=== PATIENT | male | born 2000 | race Caucasian/White ===

== ENCOUNTER 2020-10-07 13:52 | Observation (INO) ==
[2020-10-07 16:16] LABS: Basophils # (auto) 0.02 K/uL (0-0.2); Basophils % (auto) 0.1 %; Eosinophils # (auto) 0.02 K/uL (0-0.5); Eosinophils % (auto) 0.1 %; Hematocrit (blood only) 43.9 % (42-52); Hemoglobin 15.5 g/dL (14.0-18.0); Immature Granulocytes # (auto) 0.05 K/uL (0.00-0.02); Immature Granulocytes % (auto) 0.2 %; Lymphocytes # (auto) 0.72 K/uL (1.2-3.4); Lymphocytes % (auto) 3.5 %; Mean Corpuscular Hgb Conc 35.3 g/dL (32-36); Mean Corpuscular Volume 87.8 fL (80-100); Mean Platelet Volume 10.4 fL (7.4-10.4); Monocytes # (auto) 1.56 K/uL (0.11-0.59); Monocytes % (auto) 7.7 %; Neutrophils % (auto) 88.4 %; Platelet Count 242 K/uL (130-400); RDW Standard Deviation 38.6 fL (36.4-46.3); White Blood Count 20.37 K/uL (4.8-10.8)
[2020-10-07] MEDS ORDERED: KETOROLAC TROMETHAMINE 15 MG/ML VIAL IV ONE (16:20)
[2020-10-07] MEDS ORDERED: SODIUM CHLORIDE 0.9% 1000ML 1,000 ML IV ONE (16:20)
[2020-10-07] MEDS ORDERED: ONDANSETRON INJ 2 MG/ML 2 ML VIAL IV STA (16:20)
--- NOTE | 2020-10-07 16:27 | Emergency Department Note ---
Impression & Plan Acute appendicitis, Abdominal pain, Leukocytosis ED Provider Note NAME: STANFORD CAIN AGE: 20 SEX: M : 2000 ARRIVES VIA: Walk-In INFORMANT: Patient ED PROVIDER(S): Fantasma Langford DO CHIEF COMPLAINT: Abdominal pain HPI: Patient is a 20-year-old male who presents ER for right lower quadrant abdominal pain which started this morning. Associate with nausea vomiting. Initially periumbilical now is focal in the right lower quadrant. Denies any dysuria urgency or frequency. Movement as well as palpation makes it worse. Pain is a 7 out of 10 intensity and sharp and stabbing in nature. Denies any chest pain or shortness of breath. ROS: See above HPI for pertinent positives & negatives. A total of 10 systems reviewed and were otherwise negative. PAST MEDICAL HISTORY:See Below PAST SURGICAL HISTORY:See Below FAMILY HISTORY:See Below SOCIAL HISTORY:See Below HOME MEDICATIONS:See Below ALLERGIES:See Below VITALS:See Below PHYSICAL EXAMINATION: GENERAL: Sitting up in bed, alert, well appearing, well nourished, no distress, non-toxic EYE EXAM: normal conjunctiva. OROPHARYNX: no exudate, no erythema, lips, buccal mucosa, and tongue normal and mucous membranes are moist NECK: supple, no nuchal rigidity, no adenopathy, non-tender LUNGS: Clear to auscultation. Normal chest wall mechanics HEART: no murmurs, S1 normal and S2 normal ABDOMEN: abdomen soft, tender palpation right lower quadrant, normo-active bowel sounds, no masses, no rebound or guarding. UPPER EXTREMITIES: upper extremities are grossly normal. LOWER EXTREMITIES: No pitting edema. NEURO EXAM: Normal sensorium, cranial nerves II-XII grossly intact, normal speech, no gross weakness of arms, no gross weakness of legs. MEDICAL DECISION MAKING: Patient is a 20-year-old male who presents the ER for right lower quadrant abdominal pain. On exam he is acutely tender. IV was demonstrated pristine. Labs show leukocytosis 20,000. No significant anemia. BMP along with LFTs bilirubin lipase is unremarkable. UA was negative. Covid was negative. CT abdomen pelvis confirms acute appendicitis. He was given fluids Toradol and cefoxitin and discussed with general surgery for further evaluation and admission. Triage Nursing notes reviewed. Limited review of prior medical records performed Vital Signs: reviewed and remarkable for no significant abnormalities Differential diagnosis: Differential diagnoses includes but is not limited to gastritis, peptic ulcer disease, GERD, gallbladder disease, pancreatitis, small bowel obstruction, acute coronary syndrome, pericarditis, ischemic bowel, irritable bowel disease, irritable bowel syndrome, appendicitis, diverticulitis, malignancy, hernia, urinary tract infection, torsion, /ectopic (if female), perforation, trauma, infectious. ER treatment provided: See below Diagnostics interpreted by me: ECG: none Cardiac Monitoring: An order was placed for continuous cardiac monitoring. The monitor shows a rate of 70 with sinus rhythm. Laboratory studies: As stated above and show below. Imaging studies: CT abdomen pelvis confirms acute appendicitis Consultation(s): none Procedures: none Critical Care: None Past Med/Surg History Medical History (Updated 10/07/20 @ 19:56 by Fantasma Langford DO) No significant medical problems Surgical History (Updated 10/07/20 @ 19:40 by Ernesto King MD) No significant past surgical history Social History Smoking Status: Never smoker Feels Safe at Home: Yes Allergies Allergies Allergy/AdvReac Type Severity Reaction Status Date / Time prednisone AdvReac Severe Agitated Verified 10/07/20 16:22 Home Meds Home Medications Medication Instructions Recorded Confirmed No Known Home Medications 10/07/20 10/07/20 Results & Data (ED) Vital Signs Vital Signs - 24 hr 10/07/20 14:10 10/07/20 16:23 10/07/20 16:30 Temperature 36.9 C 36.9 C Temperature Source Temporal Artery Scan Oral Pulse Rate 68 59 L Pulse Rate [Left] 58 L Pulse Rate from SpO2 Sensor 60 Pulse Rhythm [Left] Regular Respiratory Rate 20 18 20 Respiratory Effort / Characteristics Non-Labored Respiratory Depth Normal Blood Pressure 122/64 131/54 L Blood Pressure Mean 83 79 Pulse Oximetry 100 100 100 Oxygen Delivery Method Room Air Room Air Sepsis Recent Fever Within 48 Hours No Sepsis New/Unexplained Change in Mental Status No Sepsis Action Taken by Nursing No Action Required 10/07/20 16:33 10/07/20 16:45 10/07/20 17:00 Temperature Temperature Source Pulse Rate 64 54 L 61 Pulse Rate [Left] Pulse Rate from SpO2 Sensor 65 54 L 61 Pulse Rhythm [Left] Respiratory Rate 24 24 19 Respiratory Effort / Characteristics Respiratory Depth Blood Pressure 116/58 L 134/70 Blood Pressure Mean 77 91 Pulse Oximetry 99 100 100 Oxygen Delivery Method Sepsis Recent Fever Within 48 Hours Sepsis New/Unexplained Change in Mental Status Sepsis Action Taken by Nursing 10/07/20 17:30 10/07/20 17:46 10/07/20 18:00 Temperature Temperature Source Pulse Rate 71 69 61 Pulse Rate [Left] Pulse Rate from SpO2 Sensor 71 68 62 Pulse Rhythm [Left] Respiratory Rate 23 17 20 Respiratory Effort / Characteristics Respiratory Depth Blood Pressure 107/78 148/61 H 143/66 H Blood Pressure Mean 87 90 91 Pulse Oximetry 100 100 100 Oxygen Delivery Method Sepsis Recent Fever Within 48 Hours Sepsis New/Unexplained Change in Mental Status Sepsis Action Taken by Nursing 10/07/20 18:01 10/07/20 18:10 10/07/20 18:15 Temperature Temperature Source Pulse Rate 64 74 71 Pulse Rate [Left] Pulse Rate from SpO2 Sensor 63 73 68 Pulse Rhythm [Left] Respiratory Rate 25 H 28 H 17 Respiratory Effort / Characteristics Respiratory Depth Blood Pressure 157/62 H Blood Pressure Mean 93 Pulse Oximetry 100 100 100 Oxygen Delivery Method Sepsis Recent Fever Within 48 Hours Sepsis New/Unexplained Change in Mental Status Sepsis Action Taken by Nursing 10/07/20 18:20 10/07/20 18:30 10/07/20 18:40 Temperature Temperature Source Pulse Rate 68 69 72 Pulse Rate [Left] Pulse Rate from SpO2 Sensor 68 69 74 Pulse Rhythm [Left] Respiratory Rate 20 29 H 21 Respiratory Effort / Characteristics Respiratory Depth Blood Pressure 143/64 H Blood Pressure Mean 90 Pulse Oximetry 100 100 100 Oxygen Delivery Method Sepsis Recent Fever Within 48 Hours Sepsis New/Unexplained Change in Mental Status Sepsis Action Taken by Nursing 10/07/20 18:45 10/07/20 18:50 10/07/20 19:00 Temperature Temperature Source Pulse Rate 76 71 67 Pulse Rate [Left] Pulse Rate from SpO2 Sensor 76 71 67 Pulse Rhythm [Left] Respiratory Rate 22 20 17 Respiratory Effort / Characteristics Respiratory Depth Blood Pressure 137/76 120/77 Blood Pressure Mean 96 91 Pulse Oximetry 99 100 100 Oxygen Delivery Method Sepsis Recent Fever Within 48 Hours Sepsis New/Unexplained Change in Mental Status Sepsis Action Taken by Nursing 10/07/20 19:10 10/07/20 19:15 10/07/20 19:20 Temperature Temperature Source Pulse Rate 72 88 72 Pulse Rate [Left] Pulse Rate from SpO2 Sensor 71 86 Pulse Rhythm [Left] Respiratory Rate 21 22 21 Respiratory Effort / Characteristics Respiratory Depth Blood Pressure 127/71 Blood Pressure Mean 89 Pulse Oximetry 99 100 Oxygen Delivery Method Sepsis Recent Fever Within 48 Hours Sepsis New/Unexplained Change in Mental Status Sepsis Action Taken by Nursing Laboratory Data Result diagrams: 10/07/20 16:00 10/07/20 16:00 Lab Results 10/07/20 10/07/20 10/07/20 Range/Units 16:00 16:00 18:05 WBC 20.37 H (4.8-10.8) K/uL RBC 5.00 (4.7-6.1) M/uL Hgb 15.5 (14.0-18.0) g/dL Hct 43.9 (42-52) % MCV 87.8 (80-100) fL MCH 31.0 (25-34) pg MCHC 35.3 (32-36) g/dL RDW Std Deviation 38.6 (36.4-46.3) fL RDW Coeff of Dino 12.0 (11.5-14.5) % Plt Count 242 (130-400) K/uL MPV 10.4 (7.4-10.4) fL Immature Gran % (Auto) 0.2 % Neut % (Auto) 88.4 % Lymph % (Auto) 3.5 % [place] % (Auto) 7.7 % Eos % (Auto) 0.1 % Baso % (Auto) 0.1 % Neut # (Auto) 18.00 H (1.4-6.5) K/uL Lymph # (Auto) 0.72 L (1.2-3.4) K/uL [place] # (Auto) 1.56 H (0.11-0.59) K/uL Eos # (Auto) 0.02 (0-0.5) K/uL Baso # (Auto) 0.02 (0-0.2) K/uL Immature Gran # (Auto) 0.05 H (0.00-0.02) K/uL Sodium 138 (136-145) mmol/L Potassium 3.5 (3.5-5.1) mmol/L Chloride 105 (98-107) mmol/L Carbon Dioxide 26 (21-32) mmol/L Anion Gap 7.0 (3-11) BUN 16 (7-18) mg/dl Creatinine 0.89 (0.6-1.4) mg/dl Est Cr Clr Drug Dosing 126.0 ml/min Est GFR ( Amer) 142.7 Est GFR (Non-Af Amer) 123.1 BUN/Creatinine Ratio 17.4 (10-20) Glucose 104 H (70-99) mg/dl Calcium 9.8 (8.5-10.1) mg/dl Total Bilirubin 0.6 (0.2-1) mg/dl AST 14 L (15-37) U/L ALT 22 (12-78) U/L Alkaline Phosphatase 92 (45-117) U/L Total Protein 8.2 (6.4-8.2) gm/dl Albumin 4.8 (3.4-5.0) gm/dl Globulin 3.4 (2.5-4.0) gm/dl Albumin/Globulin Ratio 1.4 (0.9-2) Lipase 81 (73-393) U/L Urine Color Urine Appearance (Clear) Urine pH (4.5-7.5) Ur Specific [place] (1.000-1.030) Urine Protein (Negative) Urine Glucose (UA) (Negative) Urine Ketones (Negative) Urine Blood (Negative) Urine Nitrite (Negative) Urine Bilirubin (Negative) Urine Urobilinogen (Negative) Ur Leukocyte Esterase (Negative) COVID-19 Eval Order CovFluRsv at [facility] SARS-CoV-2 (PCR) (Negative) Influenza Type A (PCR) (Neg) Influenza Type B (PCR) (Neg) RSV (RT-PCR) (Neg) 10/07/20 10/07/20 Range/Units 18:05 Unknown WBC (4.8-10.8) K/uL RBC (4.7-6.1) M/uL Hgb (14.0-18.0) g/dL Hct (42-52) % MCV (80-100) fL MCH (25-34) pg MCHC (32-36) g/dL RDW Std Deviation (36.4-46.3) fL RDW Coeff of Dino (11.5-14.5) % Plt Count (130-400) K/uL MPV (7.4-10.4) fL Immature Gran % (Auto) % Neut % (Auto) % Lymph % (Auto) % [place] % (Auto) % Eos % (Auto) % Baso % (Auto) % Neut # (Auto) (1.4-6.5) K/uL Lymph # (Auto) (1.2-3.4) K/uL [place] # (Auto) (0.11-0.59) K/uL Eos # (Auto) (0-0.5) K/uL Baso # (Auto) (0-0.2) K/uL Immature Gran # (Auto) (0.00-0.02) K/uL Sodium (136-145) mmol/L Potassium (3.5-5.1) mmol/L Chloride (98-107) mmol/L Carbon Dioxide (21-32) mmol/L Anion Gap (3-11) BUN (7-18) mg/dl Creatinine (0.6-1.4) mg/dl Est Cr Clr Drug Dosing ml/min Est GFR ( Amer) Est GFR (Non-Af Amer) BUN/Creatinine Ratio (10-20) Glucose (70-99) mg/dl Calcium (8.5-10.1) mg/dl Total Bilirubin (0.2-1) mg/dl AST (15-37) U/L ALT (12-78) U/L Alkaline Phosphatase (45-117) U/L Total Protein (6.4-8.2) gm/dl Albumin (3.4-5.0) gm/dl Globulin (2.5-4.0) gm/dl Albumin/Globulin Ratio (0.9-2) Lipase (73-393) U/L Urine Color Dark Yellow Urine Appearance Clear (Clear) Urine pH 7.5 (4.5-7.5) Ur Specific [place] 1.029 (1.000-1.030) Urine Protein Negative (Negative) Urine Glucose (UA) Negative (Negative) Urine Ketones 2+ H (Negative) Urine Blood Negative (Negative) Urine Nitrite Negative (Negative) Urine Bilirubin Negative (Negative) Urine Urobilinogen Negative (Negative) Ur Leukocyte Esterase Negative (Negative) COVID-19 Eval Order SARS-CoV-2 (PCR) NEGATIVE (Negative) Influenza Type A (PCR) Negative (Neg) Influenza Type B (PCR) Negative (Neg) RSV (RT-PCR) Negative (Neg) Administered Medications Discontinued Medications Sodium Chloride (Nss 1000ml) 1,000 mls @ 999 mls/hr IV .Q1H1M ONE Stop: 10/07/20 17:20 Last Infusion: 10/07/20 17:56 Dose: 0 mls/hr Documented by: [id number] Admin: 10/07/20 16:40 Dose: 999 mls/hr Documented by: [id number] Cefoxitin Sodium (Mefoxin) 2,000 mg in 60 mls @ 100 mls/hr IV NOW STA Stop: 10/07/20 18:38 Last Infusion: 10/07/20 19:07 Dose: 0 mls/hr Documented by: [id number] Admin: 10/07/20 18:31 Dose: 100 mls/hr Documented by: [id number] Ketorolac Tromethamine (Ketorolac Tromethamine 15 Mg/Ml Vial) 15 mg IV NOW ONE Stop: 10/07/20 16:21 Last Admin: 10/07/20 16:39 Dose: 15 mg Documented by: [id number] Ondansetron HCl (Ondansetron Inj 2 Mg/Ml 2 Ml Vial) 4 mg IV NOW STA Stop: 10/07/20 16:21 Last Admin: 10/07/20 16:39 Dose: 4 mg Documented by: [id number] Imaging Data Radiologist's Impression: Abdomen/Pelvis CT 10/07/20 16:20 CT SCAN OF THE ABDOMEN AND PELVIS WITH IV CONTRAST CLINICAL HISTORY: Right lower quadrant abdominal pain. COMPARISON STUDY: No priors. TECHNIQUE: Following the IV administration of 86 cc of Optiray 320, CT scan of the abdomen and pelvis is performed from the lung bases to the proximal femora. Images are reviewed in the axial, sagittal, and coronal planes. IV contrast was administered without complication. A dose lowering technique was utilized adhering to the principles of ALARA. CT DOSE: 397.91 mGycm FINDINGS: Lung bases: The heart is normal in size and without pericardial effusion. The lung bases are clear. Liver: The contrast-enhanced liver is normal in size, contour, and attenuation. There is no intrahepatic biliary ductal dilatation. The hepatic veins and portal veins are patent. Gallbladder: Unremarkable. Spleen: Normal in size and attenuation. Pancreas: Unremarkable. Adrenal glands: Unremarkable. Kidneys: The contrast enhanced kidneys are normal in size and without hydronephrosis. The kidneys enhance indication excrete symmetrically. Abdominal vasculature: The abdominal aorta is normal in course and caliber. Bowel: No bowel obstruction is identified. Residual enteric contrast is noted in the rectum. The appendix is distended and fluid-filled, measuring up to 12 mm diameter. This is best seen on image #280. The appendiceal wall is thickened and hyperemic and there is periappendiceal inflammation. No organized fluid collection is identified to suggest abscess. Peritoneum: There is no intraperitoneal free air or abdominal ascites. There is a small fat-containing umbilical hernia. Lymphadenopathy: None. Pelvic viscera: The bladder is decompressed and grossly unremarkable. The prost ate and seminal vesicles are normal as visualized. Skeletal structures: No lytic or blastic lesions are seen. IMPRESSION: 1. Findings are consistent with acute appendicitis. 2. There is no evidence of abscess or perforation. ACT 112: Negative or not required by law. Electronically signed by: Thom Santana M.D. 10/07/2020 5:59 PM Discharge Plan Visit Data Chief Complaint: Abdominal Pain Stated Complaint: PAIN NEAR APPENDIX-FEVER, VOMITING ED Provider: Fantasma Langford Discharge Problem: Acute appendicitis, Abdominal pain, Leukocytosis Discharge Instructions Interventions: ED Discharge Assessment Last Done: 10/07/20 19:20 Discharge Problem: Acute appendicitis Qualifiers: Acute appendicitis type: unspecified acute appendicitis type Qualified Code(s): K35.80 - Unspecified acute appendicitis Abdominal pain Qualifiers: Abdominal location: unspecified location Qualified Code(s): R10.9 - Unspecified abdominal pain Leukocytosis Qualifiers: Leukocytosis type: unspecified Qualified Code(s): D72.829 - Elevated white blood cell count, unspecified
[2020-10-07 16:45] LABS: Albumin Level 4.8 gm/dl (3.4-5.0); BUN Creatinine Ratio 17.4 (10-20); Calcium 9.8 mg/dl (8.5-10.1); Est GFR (African American) 142.7; Est GFR (Non-African American) 123.1; Potassium 3.5 mmol/L (3.5-5.1)
[2020-10-07 16:48] LABS: Albumin Globulin Ratio 1.4 (0.9-2); Bilirubin,Total 0.6 mg/dl (0.2-1); Globulin 3.4 gm/dl (2.5-4.0); Total Protein 8.2 gm/dl (6.4-8.2)
[2020-10-07 16:50] LABS: Appearance Urine Clear (Clear); Bilirubin Urine Negative (Negative); Blood Urine Negative (Negative); Color Urine Dark Yellow; Glucose Urine UA Negative (Negative); Ketones Urine 2+ (Negative); Leukocyte Esterase Urine Negative (Negative); Nitrite Urine Negative (Negative); Protein Urine Negative (Negative); Specific Gravity Urine 1.029 (1.000-1.030); Urobilinogen Urine Negative (Negative); pH Urine 7.5 (4.5-7.5)
[2020-10-07] MEDS ORDERED: OPTIRAY 320 100ml IV ONE (17:17)
--- NOTE | 2020-10-07 18:01 | CT Scan Report ---
CT SCAN OF THE ABDOMEN AND PELVIS WITH IV CONTRAST CLINICAL HISTORY: Right lower quadrant abdominal pain. COMPARISON STUDY: No priors. TECHNIQUE: Following the IV administration of 86 cc of Optiray 320, CT scan of the abdomen and pelvi s is performed from the lung bases to the proximal femora. Images are reviewed in the axial, sagittal , and coronal planes. IV contrast was administered without complication. A dose lowering technique wa s utilized adhering to the principles of ALARA. CT DOSE: 397.91 mGycm FINDINGS: Lung bases: The heart is normal in size and without pericardial effusion. The lung bases are clear. Liver: The contrast-enhanced liver is normal in size, contour, and attenuation. There is no intrahepa tic biliary ductal dilatation. The hepatic veins and portal veins are patent. Gallbladder: Unremarkable. Spleen: Normal in size and attenuation. Pancreas: Unremarkable. Adrenal glands: Unremarkable. Kidneys: The contrast enhanced kidneys are normal in size and without hydronephrosis. The kidneys enh ance indication excrete symmetrically. Abdominal vasculature: The abdominal aorta is normal in course and caliber. Bowel: No bowel obstruction is identified. Residual enteric contrast is noted in the rectum. The appe ndix is distended and fluid-filled, measuring up to 12 mm diameter. This is best seen on image #280. The appendiceal wall is thickened and hyperemic and there is periappendiceal inflammation. No organi zed fluid collection is identified to suggest abscess. Peritoneum: There is no intraperitoneal free air or abdominal ascites. There is a small fat-containin g umbilical hernia. Lymphadenopathy: None. Pelvic viscera: The bladder is decompressed and grossly unremarkable. The prostate and seminal vesicl es are normal as visualized. Skeletal structures: No lytic or blastic lesions are seen. IMPRESSION: 1. Findings are consistent with acute appendicitis. 2. There is no evidence of abscess or perforation. ACT 112: Negative or not required by law. Electronically signed by: Thom Santana M.D. 10/07/2020 5:59 PM
[2020-10-07] MEDS ORDERED: cefOXitin 2,000 MG/60 ML BAG IV STA (18:03)
[2020-10-07 19:11] LABS: Influenza A virus by PCR Negative (Neg); Influenza B virus by PCR Negative (Neg); RSV by PCR Negative (Neg); SARS CoV2 RNA(COVID-19) InHosp NEGATIVE (Negative)
--- NOTE | 2020-10-07 19:25 | History & Physical Report ---
Date of Service October 07, 2020 Assessment & Plan (1) Acute appendicitis: Due to the imaging, labs, and clinical presentation we will proceed with the appendectomy this evening. A Covid test is noted be negative Cefoxitin has been ordered by the emergency department physician. as above. discussed findings/options/risks ( bleeding/infection/injury to another structure/dvt/pe/mi/cva etc....). questions answered. will proceed with gold engle. History of Present Illness Chief Complaint: Abdominal pain Primary Care Provider: [facility] This is a 20-year-old [employer] student who presented to the emergency department this evening. Patient noted that he woke up this morning and had some generalized abdominal pain primarily located in the periumbilical area. He said he ate breakfast but subsequently had nausea vomiting. He denies any fevers, shakes, chills. He notes the pain is subsequently throughout the day has shifted to the right lower quadrant. He said the pain does not radiate anywhere. He notes the pain is somewhat better when he lies still and is worse with certain movements. He also notes that pain administered in the emergency department has subsequently alleviated the pain. In the emergency department the patient had labs and imaging which I did telemetry reviewed. He had a CT scan of the abdomen and pelvis that showed findings consistent with acute appendicitis. CBC revealed a white blood cell count of 20.3. His hemoglobin hematocrit and platelet count were all noted to be within normal range. He did have a Covid test sent in the emergency department which was noted to be negative. A chemistry profile revealed his sodium, potassium, BUN, and creatinine were all within normal range. At the time of interview he is resting comfortably in bed in no distress. Allergies Allergy/AdvReac Type Severity Reaction Status Date / Time prednisone AdvReac Severe Agitated Verified 10/07/20 16:22 Home Medications Medication Instructions Recorded Confirmed Type No Known Home Medications 10/07/20 10/07/20 History Past Med/Surg History Social History Smoking Status: Never smoker Feels Safe at Home: Yes Review of Systems Constitutional: no fever and no chills Eyes: no diplopia Ear, Nose, Mouth, Throat: no ear pain Respiratory: no cough and no dyspnea Cardiovascular: no chest pain Gastrointestinal: + abdominal pain, + nausea and + vomiting Genitourinary: no dysuria Musculoskeletal: no back pain Integumentary: no rash Neurologic: no localized weakness Physical Exam Constitutional: well developed and well nourished; no acute distress Eyes: no conjunctival abnormality ENMT: Ears: no hearing impairment Neck: trachea midline Respiratory: normal respiratory effort, lungs clear to auscultation Cardiovascular: Rate/Rhythm: regular rate and regular rhythm Gastrointestinal (Abdomen): Abdomen is soft and nondistended. Bowel sounds are present. Patient did have significant pain with palpation in the right lower quadrant. He did have some associated rebound tenderness. Musculoskeletal: No calf tenderness Skin: no rashes, warm and dry Neurologic: moves all extremities Psychiatric: A+Ox3, euthymic affect Results & Data Results & Data ([facility]) Vital Signs (Past 12 Hours) Vital Signs Temp Pulse Pulse Resp BP Pulse Ox 10/07/20 18:01 64 25 H 100 10/07/20 18:00 61 20 143/66 H 100 10/07/20 17:46 69 17 148/61 H 100 10/07/20 17:30 71 23 107/78 100 10/07/20 17:00 61 19 134/70 100 10/07/20 16:45 54 L 24 116/58 L 100 10/07/20 16:33 64 24 99 10/07/20 16:30 59 L 20 131/54 L 100 10/07/20 16:23 36.9 C 58 L 18 100 10/07/20 14:10 36.9 C 68 20 122/64 100 PG Care Time/CCT Total # of Minutes Spent Total Time Spent with Patient: Total time spent is greater than 50% in coordination of care (as documented) at patient's floor/unit and/or counseling patient: Coding Level of Care Code 22749 OBS Care - Level 3 Diagnoses Acute appendicitis K35.80
[2020-10-07] MEDS ORDERED: MIDAZOLAM HCL 1 MG/ML 2ML VIAL ONE (19:35)
[2020-10-07] MEDS ORDERED: fentaNYL citrate 100 MCG/2 ML VIAL ONE ×2 (19:35→20:35)
[2020-10-07] MEDS ORDERED: MEPERIDINE HCL 25 MG/ML CARP/VIAL IV PRN (19:40)
[2020-10-07] MEDS ORDERED: KETOROLAC 30 MG/ML VIAL IV PRN (19:40)
[2020-10-07] MEDS ORDERED: fentaNYL citrate 100 MCG/2 ML VIAL IV PRN (19:40)
[2020-10-07] MEDS ORDERED: ONDANSETRON INJ 2 MG/ML 2 ML VIAL IV PRN ×2 (19:40→21:37)
[2020-10-07] MEDS ORDERED: ATROPINE SULFATE 0.1 MG/ML 10ML SYR IV PRN (19:40)
--- NOTE | 2020-10-07 19:40 | Anesthesiology Consultation ---
Date of Service October 07, 2020 Assessment & Plan (1) Encounter for pre-operative examination: Chart Review Chart Review: Acceptable Risk for Surgery History Surgery Operation Date: 10/07/20 20:00 Proposed Procedures p Laparoscopic Appendectomy(Not Applicable) - Xiang Wesley DO Height/Weight Height: 5 ft 10 in Weight: 67.3 kg Allergies Allergy/AdvReac Type Severity Reaction Status Date / Time prednisone AdvReac Severe Agitated Verified 10/07/20 16:22 Medications Home Medications Medication Instructions Recorded Confirmed Last Taken No Known Home Medications 10/07/20 10/07/20 Unknown Past Medical History Medical History (Updated 10/07/20 @ 19:40 by Ernesto King MD) No significant medical problems Past Surgical History Surgical History (Updated 10/07/20 @ 19:40 by Ernesto King MD) No significant past surgical history Social History Smoking Status: Never smoker Physical Exam Vital Signs Last Vital Signs Temp 36.9 C 10/07/20 16:23 Pulse 64 10/07/20 18:01 Resp 25 H 10/07/20 18:01 BP 143/66 H 10/07/20 18:00 Pulse Ox 100 10/07/20 18:01 Testing Laboratory Results 10/07/20 16:00 10/07/20 16:00 Urine Color Dark Yellow 10/07/20 Unknown Urine Appearance Clear (Clear) 10/07/20 Unknown Urine pH 7.5 (4.5-7.5) 10/07/20 Unknown Ur Specific [place] 1.029 (1.000-1.030) 10/07/20 Unknown Urine Protein Negative (Negative) 10/07/20 Unknown Urine Glucose (UA) Negative (Negative) 10/07/20 Unknown Urine Ketones 2+ (Negative) H 10/07/20 Unknown Urine Nitrite Negative (Negative) 10/07/20 Unknown Ur Leukocyte Esterase Negative (Negative) 10/07/20 Unknown
[2020-10-07] MEDS ORDERED: BUPIVACAINE/EPINEPHRINE 0.5% MPF 1:200,000 30 ML VIAL ONE (19:43)
[2020-10-07] MEDS ORDERED: PROPOFOL IV EMULSION 10 MG/ML 20 ML VIAL IV ONE (20:42)
[2020-10-07] MEDS ORDERED: NEOSTIGMINE METHYLSULFATE 5 MG/5 ML SYR ONE (20:42)
[2020-10-07] MEDS ORDERED: METOCLOPRAMIDE HCL INJ 5 MG/ML 2 ML VIAL ONE (20:42)
[2020-10-07] MEDS ORDERED: ROCURONIUM BROMID 50MG/5ML SYR ONE (20:42)
[2020-10-07] MEDS ORDERED: LIDOCAINE HCL 2% 2 ML VIAL/AMP(20MG/ML) INFIL ONE (20:42)
[2020-10-07] MEDS ORDERED: ONDANSETRON INJ 2 MG/ML 2 ML VIAL ONE (20:42)
[2020-10-07] MEDS ORDERED: GLYCOPYRROLATE 0.2 MG/ML VIAL ONE (20:42)
--- NOTE | 2020-10-07 21:08 | Operative Report ---
PG Post Operative Report Pre & Post Diagnosis Operation Date: 10/07/20 20:00 Pre-Op Diagnosis: Acute appendicitis Post-Op Diagnosis: Acute appendicitis I identified the patient and participated in the time-out.: Yes Procedure Operation Date: 10/07/20 20:00 Actual Procedures p Laparoscopic Appendectomy(Not Applicable) ; enterolysis- Xiang Wesley DO Surgeon Xiang Wesley DO Rn Clinical Quality julianna Curtis Estimated Blood Loss 10 Findings Consistent with Post-Op Diagnosis Specimens appendix Description of Procedure After informed consent was obtained the patient was taken to the operating room and placed in supine position. After successful intubation the abdomen was shaved and sterilely prepped draped in usual fashion. Left arm had been tucked. We began with a supraumbilical incision with 11 blade scalpel. This was carried down through the soft tissues using cautery. The anterior rectus fascia was opened using cautery and two #0 Vicryl stay sutures were placed. Peritoneum was elevated with hemostats and incised under direct vision using a Metzenbaum scissor. A finger sweep was performed. A 12 mm Mota trocar was placed and the abdomen was insufflated to 18 mmHg. The laparoscope was inserted and the abdomen examined in 360 degrees. A suprapubic 5 mm port and a left lower quadrant 12 mm port were placed under direct vision. The patient was placed in a Trendelenburg position and slightly air planed to the left. We looked in the right lower quadrant. We were able to readily identify a retrocecal appendix. It was thickened firm and inflamed. It had not perforated. There were some adhesions from the cecum to the right anterior abdominal wall. I used traction countertraction and sharp scissor lysis to take these down. Eventually I was able to roll the cecum medially exposing the appendix. I was able to grasp the appendix and bluntly dissect it away surrounding tissue. I was able to use a purple cartridge 60 mm HERMAN linear stapler to transect the appendix at its base with the cecum. A second firing with a 60 mm brown cartridge was used to take down the mesentery of the appendix. We then thoroughly irrigated the right lower quadrant as well as the pelvis. No other gross abnormalities were identified. I ran the small bowel backwards from the terminal ileum for several feet there was no evidence of a Meckel's diverticulum. We inspected both staple lines. There was adequate hemostasis. The appendix was placed into an Endo Catch bag and removed from the camera port site. All the trochars were removed and the abdomen was desufflated. The fascia of the camera port as well as the left lower quadrant port were closed using 0 Vicryl in [id number] fashion. All the wounds were irrigated and closed using 4-0 Monocryl. Marcaine was injected around them for postoperative analgesia and skin glue used as a dressing. My physician apartment community assistant manager was present through the entire case. He helped prep the patient. He helped run the camera as well as assist with retraction throughout my dissection. Also helped with wound closure and dressing placement. I attest to the content of the Intraoperative Record and any orders documented therein. Any exceptions are noted below.
[2020-10-07] MEDS ORDERED: MoRPHine SULFATE 4 MG/ML 1 ML CARP\\VIAL IV PRN (21:37)
[2020-10-07] MEDS ORDERED: LACTATED RINGER'S 1,000 ML IV SCH (21:37)
[2020-10-07] MEDS ORDERED: oxyCODONE HCL IR 5 MG TAB (IMMEDIATE RELEASE) PO PRN (21:49)
[2020-10-07] MEDS: ACETAMINOPHEN 1,000 MG/100 ML VIAL IV SCH (22:32)
[2020-10-08] MEDS: ACETAMINOPHEN 1,000 MG/100 ML VIAL IV SCH ×3 (05:30→14:09)
--- NOTE | 2020-10-08 10:01 | Surgery Progress Note ---
Date of Service October 08, 2020 Assessment & Plan (1) Acute appendicitis: pt still having a fair amount of surgical discomfort. oral pain meds administered now. will see how he does. possible d/c after lunch vs one more night of observation. d/c instructions reviewed with pt. Admission and Anticipated Discharge Date Admission Date: October 07, 2020 Subjective pt doing ok. having incisional pain but pre-op pain has resolved. zoie liquids. Physical Exam Physical Exam: alert. nad abd: soft. expected post op ttp. wounds look good. Results & Data ([facility]) Vital Signs (Past 12 Hours) Vital Signs Temp Pulse Resp BP Pulse Ox 10/08/20 07:30 36.6 C 53 L 16 116/66 98 10/08/20 04:00 37.0 C 86 15 103/57 L 97 10/08/20 00:37 36.8 C 89 15 118/61 98 10/07/20 23:30 95 H 15 125/61 97 10/07/20 22:27 37.1 C 80 16 133/56 L 98 10/07/20 22:03 37.0 C 91 H 14 140/61 96 PG Care Time/CCT Total # of Minutes Spent Total Time Spent with Patient: Total time spent is greater than 50% in coordination of care (as documented) at patient's floor/unit and/or counseling patient: Coding Level of Care Code None Diagnoses Acute appendicitis K35.80 Acute appendicitis type: unspecified acute appendicitis type (1) Acute appendicitis Acute appendicitis type: unspecified acute appendicitis type Qualified Code(s): K35.80 - Unspecified acute appendicitis
--- NOTE | 2020-10-11 16:12 | Discharge Summary (DS) ---
ADMISSION DIAGNOSIS: Acute appendicitis. DISCHARGE DIAGNOSIS: Acute appendicitis. HOSPITAL COURSE: This patient presented to the Emergency Department secondary to generalized abdominal pain and periumbilical area then it shifted to the right lower quadrant. The patient had nausea, vomiting, so he presented to the Emergency Department where he had a CT scan performed which showed findings consistent with acute appendicitis. On date of admission, Dr. Wesley took the patient to the operating room and performed a laparoscopic appendectomy without complications. On postoperative day #1 the patient was able to tolerate diet advancement was doing well, so he was deemed stable for discharge. He was provided with instructions on appropriate wound care, diet, and activity. He was told to follow up with Dr. Wesley in 1 week.
== END 2020-10-08 15:02 | disposition home or self-care (01) ==
LOC: ED 13:52 → OR 19:39 → 3N 19:39